=== PATIENT | male | born 1940 | race Caucasian/White ===

== ENCOUNTER → 2020-05-12 | Outpatient (CLI) | payer OTHER, MEDICARE ==
[~2020-05-12] MED LIST: ARGININE1 GM PO; ASPIR 8181 MG PO; ASPIRIN EC325 MG PO; BYSTOLIC10 MG PO; CHROMIUM400 MCG PO; CO Q-10100 MG PO; EMERGEN-C 500500 MG PO; FISH OIL 1,001000 M3 PO; GARLIC OIL1000 MG PO; LATANOPROST 0.2.5 ML EA. EYE; LIPITOR 20 MG T20 M1 PO; LOSARTAN-HCTZ1 EAC3 PO; MAGNESIUM250 M1 PO; MELOXICAM15 MG PO; METFORMIN HCL500 M3 PO; MUPIROCIN22 GM NARES; MURO-128 5% OPH15 M1 OPHTHALMIC; MURO-12815 ML/BOT EA. EYE; OCUFLOX5 ML RT. EYE; OSTERA TABLET1 EAC1 PO; PRED FORTE 1% EY5 M1 OPHTHALMIC; SUPER THERAVIT1 EACH PO; TIMOLOL MALEATE5 M2 OPHTHALMIC; TURMERIC500 M2 PO; VICTOZA0.6 MG/0.1 SUBQ; ZETIA10 MG PO; [UNRECOGNIZED DRUG - OTHER] PO
== END ==
LOC: SJCVCIMAG 05-05 09:42
PROVIDERS: ATTEND Internal Medicine Cardiovascular Disease
DX: I65.23 Occlusion and stenosis of bilateral carotid arteries (principal); R94.31 Abnormal electrocardiogram [ECG] [EKG]; I45.10 Unspecified right bundle-branch block; E78.00 Pure hypercholesterolemia, unspecified; I10 Essential (primary) hypertension; E11.9 Type 2 diabetes mellitus without complications; F17.210 Nicotine dependence, cigarettes, uncomplicated; Z79.899 Other long term (current) drug therapy

== ENCOUNTER 2020-05-17 06:31 | Inpatient (IN) | payer OTHER, MEDICARE ==
[2020-05-17] VITALS (12 sets, daily range): BP systolic 121–156; BP diastolic 53–115
[~2020-05-17] VITALS: Ht 185.4 cm; Wt 67.6 kg
[2020-05-17 07:36] LABS: HEMATOCRIT 41.2 % (42.0-52.0); HEMOGLOBIN 13.7 gm/dL (14.0-18.0); MCH 32.8 pg (26.0-34.0); MCHC 33.3 g/dL (28.0-37.0); MCV 98.4 fL (80.0-100.0); RBC 4.19 mil/uL (4.50-6.00); RDW 12.2 % (10.5-14.5); WBC 8.8 thou/uL (4.0-11.0)
[2020-05-17 07:46] LABS: CALCIUM 9.4 mg/dL (8.5-10.1); CREATININE 1.1 mg/dL (0.7-1.3); POTASSIUM 4.6 mmol/L (3.5-5.1)
[2020-05-17] MEDS ORDERED: VICTOZA0.6 MG/0.1 SUBQ (08:27)
[2020-05-17] MEDS ORDERED: METFORMIN HCL500 M3 PO (08:28)
[2020-05-17] MEDS ORDERED: TIMOLOL MALEATE5 M2 OPHTHALMIC (08:29)
[2020-05-17] MEDS ORDERED: BYSTOLIC10 MG PO (08:30)
[2020-05-17] MEDS ORDERED: LIPITOR 20 MG T20 M1 PO (08:35)
[2020-05-17] MEDS ORDERED: MELOXICAM15 MG PO (08:37)
[2020-05-17] MEDS ORDERED: LOSARTAN-HCTZ1 EAC3 PO (08:38)
[2020-05-17] MEDS ORDERED: LATANOPROST 0.2.5 ML EA. EYE (08:44)
[2020-05-17] MEDS ORDERED: ASPIRIN EC325 MG PO (08:46)
[2020-05-17] MEDS ORDERED: MUPIROCIN22 GM NARES (08:48)
[2020-05-17] MEDS ORDERED: FISH OIL 1,001000 M3 PO (08:52)
[2020-05-17] MEDS ORDERED: CHROMIUM400 MCG PO (08:53)
[2020-05-17] MEDS ORDERED: CO Q-10100 MG PO (09:17)
[2020-05-17] MEDS ORDERED: SUPER THERAVIT1 EACH PO (09:17)
[2020-05-17] MEDS ORDERED: EMERGEN-C 500500 MG PO (09:20)
[2020-05-17] MEDS ORDERED: ARGININE1 GM PO (09:23)
[2020-05-17] MEDS ORDERED: OSTERA TABLET1 EAC1 PO (09:25)
[2020-05-17] MEDS ORDERED: TURMERIC500 M2 PO (09:29)
[2020-05-17] MEDS ORDERED: GARLIC OIL1000 MG PO (09:31)
[2020-05-17] MEDS ORDERED: [UNRECOGNIZED DRUG - OTHER] PO (09:32)
[2020-05-17] MEDS ORDERED: MAGNESIUM250 M1 PO (09:33)
[2020-05-17] MEDS ORDERED: MURO-12815 ML/BOT EA. EYE (09:35)
[2020-05-17] MEDS ORDERED: ZETIA10 MG PO (09:36)
[2020-05-17] MEDS ORDERED: PRED FORTE 1% EY5 M1 OPHTHALMIC (09:38)
[2020-05-17] MEDS ORDERED: OCUFLOX5 ML RT. EYE (09:40)
[2020-05-17] MEDS ORDERED: MURO-128 5% OPH15 M1 OPHTHALMIC (09:44)
--- NOTE | 2020-05-17 17:35 | NUR ---
PATIENT ARRIVED FROM CATHLAB, ALERT AND ORIENTED X4. RT GRION SITE D/C/I AND POST CARDIAC CATH ASSESSMENT IS STABLE. ADMISION COMPLETED AND POC INITIATED. AND WILL CONTINUE TO MONITOR.
[2020-05-18] VITALS (8 sets, daily range): BP systolic 94–126; BP diastolic 39–82
--- NOTE | 2020-05-18 05:42 | NUR ---
ASSUMED CARE OF PATIENT AT 1900. PATIENT ASKING ABOUT LATANAPROST DROPS. THEY ARE LISTED IN MED REC BUT NO ORDER FOR THEM . WILL PASS ON IN REPORT TO ASK ABOUT AN ORDER FOR THESE DROPS. PATIENT AMBULATED UNIT BEFORE HS. RIGHT GROIN INCISION SITE REMAINS SOFT WITH DRESSING C/D/I. PATIENT APPEARED TO REST WELL THROUGH NOC.
[2020-05-18 06:00] LABS: CALCIUM 8.6 mg/dL (8.5-10.1); CREATININE 1.2 mg/dL (0.7-1.3); POTASSIUM 4.2 mmol/L (3.5-5.1)
[2020-05-18 06:06] LABS: HEMATOCRIT 34.4 % (42.0-52.0); MCH 33.3 pg (26.0-34.0); MCHC 33.8 g/dL (28.0-37.0); MCV 98.4 fL (80.0-100.0); RBC 3.5 mil/uL (4.50-6.00); RDW 12.2 % (10.5-14.5); WBC 7.5 thou/uL (4.0-11.0)
[2020-05-18 06:30] LABS: HEMOGLOBIN 11.6 gm/dL (14.0-18.0)
--- NOTE | 2020-05-18 09:32 | NUR ---
CONSULT [id number] WAS COMPLETED TODAY BY THIS MOLDING AND TRIM INSTALLER. PATIENT AND FAMILY MEMBER WERE VISITED IN HIS ROOM YESTERDAY, may 17, 2020. PATIENT WAS VISITED PRIOR TO 0730 HOURS A ROUTINE, PRE-SURGERY VISIT TODAY. THEY WERE APPRECIAITVE FOR THE VISITS.
--- NOTE | 2020-05-18 13:00 | NUR ---
PT RECIEVED TO THE ICU AAOX4, SPEAK CLEAR AND TELLING JOKES. ORIENTED TO ROOM AND SURROUNDINGS. PLACED ON THE MONITOR SHOWS NSR, CARDENE IS OFF AT THIS TIME. SBP IS 95-97, RT WRIST TREVER. DENIES ANY PAIN AT THIS TIME BUT WANTS A DIET COKE. WILL CONT, TO MONITOR.
--- NOTE | 2020-05-18 17:51 | CATHLAB ---
[facility] [email or web address] [address] INVASIVE PROCEDURE REPORT Name: CHING FARRIS Room #: 248-P ADM IN M.R.#: [id number] Admission: 05/17/20 Attend Phys: Сергей Vasquez MD Discharge: Date of : 44 Report #: [id number] THIS REPORT FOR: cc: Freddie Day Alan Z. DO Mancuso, Gerald M. MD [facility] ~ APPROVED REPORT Study performed: 05/17/2020 09:32:38 Patient Details Patient Status: Out-Patient Room #: The patient is a 80 year-old male Event Personnel Сергей Vasquez Interventional Radiologist, Saji Sutherland Pilot Boat Operator, Carlos Guerrero RTR Sonia Carvalho Wes RN, Laura Muniz RTR Monitor Procedures Performed Art Access - R femoral artery* Left Heart Cath w/or w/o Coronaries [id number] [facility] Hemostasis w/ Mynx 94858 Initial Mod Sed Same Phys/QHP Gr5y 207243 12767 Mod Sed Same Phys/QHP Ea 391935 Procedure Narrative The was infiltrated with 1% Lidocaine subcutaneous anesthesia. A SHEATH BRITE-TIP 6F X 11CM ([id number]) sheath was inserted into the RFA^. Coronary angiography was performed using coronary diagnostic catheters. The right coronary system was accessed and visualized with a JR4 catheter. The left coronary system was accessed and visualized with a JL4 catheter. The left ventricle was accessed and visualized with a PIGTAIL catheter. Left ventricular/Aortic Valve gradient assessed via catheter pullback. Left ventriculogram was performed in 30 degree projection. Pre-demployment femoral angiogram was performed . Closure device was deployed with a Fr MYNXGRIP 6/7F #[id number]. The patient tolerated the procedure well and there were no complications associated with the procedure. There was no hematoma. Intraoperative Conscious Sedation Sedation start time: 8:31 Case end Time: 10:38 Fentanyl 100 mcg Versed 2 mg Sedation time/amount is a combined total from the Runoff procedure and from the Left Heart Cath procedure. [address] [place] [address] INVASIVE PROCEDURE REPORT Name: CHING FARRIS Room #: 248-P [facility].#: [id number] Admission: 05/17/20 Attend Phys: Сергей Vasquez, Discharge: Date of : 42 Report #: [id number] Fluoro Time: 7.13 minutes Dose: DAP 9250.80 cGycm2 598 mGy Contrast Type and Amount: Omnipaque 226 ml Hemodynamics The aortic pressure is 126/58 mmHg with a mean of 86 mmHg. The left ventricular pressure is 134/8 mmHg with a mean of mmHg. The left ventricular end diastolic pressure is 20 mmHg. Conclusion #1. Normal left ventricular size and systolic function EF 55% #2 LAD is mild diffusely diseased relatively small caliber but extends around the apex no occlusive disease. Diagonal system also patent. #3 circumflex OM nondominant with mild irregularities. #4 dominant right coronary artery is moderate size caliber no occlusive disease is noted anatomically dominant. Recommendations and plan: Continue aggressive risk factor modification no indication for coronary intervention. Okay to proceed with carotid endarterectomy. <ELECTRONICALLY SIGNED> By: Saji Sutherland MD, FACC 05/18/201750 50 50 Saji Sutherland MD, FACC /INF
--- NOTE | 2020-05-18 18:35 | NUR ---
ASSESSED PT WITH DR. NICHOLSON AND DR. KHAN. INFORMED HERBIE DIETZ ABLE TO WEANN PT OFF CARDENE GTT AND THEY AGREED. PT TAKING IN GO PO, INCISION SITE CDI WITH PROVINA DRESSING IN PLACE. START GLUCOSE CHECKS AND SLIFING SCALE INSULIN. PT PROGRESSING TOWARDS GOALS.
--- NOTE | 2020-05-18 19:06 | NUR ---
REPORT GIVEN TO NIGHT RN.
[2020-05-19] VITALS (10 sets, daily range): BP systolic 89–139; BP diastolic 40–58
--- NOTE | 2020-05-19 05:01 | NUR ---
Assumed care of pt at 2300, he is alert and oriented, he denies discomfort and repositions himself in bed. PLease note, when pt tilts to his right side, the rt radial art line is VERY positional and the waveform dampens, causing abnormally low BP's, which rebound very quickly when his wrist is straightened. The cardene drip has been titrated through the shift, with good effect, and the VANE cuff pressures are usually up to 30 mmHg less than the art line. Monitor reads SR, 60's to 80's, + pulses and no edema. He is on room air, sats have been 94% and above with nonlabored respirations from 14-16 bpm. He has a dry cough and clears his throat frequently. The MARY ANN dressing to the left side of his neck shows some dried drainage, but no further bleeding is noted. Otherwise his assessment is benign, Ferreira catheter is patent, draining clear yellow urine to DD. The bed is in the low/locked position, the siderails are up x 3, and the call light is within reach, pt is progressing towards his POC goals and should be able to discharge to home. Will continue to monitor.
[2020-05-19 06:21] LABS: HEMATOCRIT 30.5 % (42.0-52.0); HEMOGLOBIN 10.3 gm/dL (14.0-18.0); MCH 33.3 pg (26.0-34.0); MCHC 33.8 g/dL (28.0-37.0); MCV 98.4 fL (80.0-100.0); RBC 3.1 mil/uL (4.50-6.00); RDW 12.1 % (10.5-14.5); WBC 13.3 thou/uL (4.0-11.0)
[2020-05-19 06:37] LABS: CALCIUM 8.1 mg/dL (8.5-10.1); CREATININE 1.1 mg/dL (0.7-1.3); POTASSIUM 4.3 mmol/L (3.5-5.1)
[2020-05-19] MEDS ORDERED: ASPIR 8181 MG PO (07:34)
--- NOTE | 2020-05-19 13:55 | NUR ---
PATIENT AMBULATED IN THE HALLS STEADY GAIT. NO DYSPNEA WITH ACTIVITY NOTED.
--- NOTE | 2020-05-19 15:00 | NUR ---
PATIENT DISCHARGED TO HOME WITH HIS VIA W/C. DISCHARGE INSTRUCTIONS REVIEWED WITH PATIENT AND , VERBALIZED UNDERSTANDING. ALSO GIVEN COVID 19 INFORMATION SHEET.
--- NOTE | 2020-05-19 18:06 | PATH ---
[facility] [address] [place] [address] PATHOLOGY RPT PROCEDURE Name: CHING FARRIS Room #: 248-P [facility] IN M.R.#: [id number] Admission: 05/17/20 Date of : 44 Discharge: 05/19/20 Report #: [id number] Path Case #: [id number] [facility] Accession Number: [id number] . 01 Material submitted: . carotid body - LEFT CAROTID ARTERY PLAQUE. Modifiers: left . 01 Clinical history: . Occlusion and stenosis of left carotid artery . 02 Diagnosis: Left carotid artery plaque, endarterectomy: - Fragments of calcified atherosclerotic plaque material. (IUV:pit 05/19/2020) QTP 05/19/2020 1338 Local . 02 Electronically signed: . Raven Acosta MD, Pathologist NPI- [id number] . 01 Gross description: . The specimen is received in formalin, labeled "Ching Farris Jr., left carotid artery plaque". Received is a segment of partially calcified yellow-torres plaque measuring 3.5 cm in length and ranges in diameter from 0.9 to 1.4 cm. The specimen is submitted representatively in cassette A1, following light decalcification. (CAA; 05/18/2020) QAC/QAC 05/18/2020 1850 Local . 02 Pathologist provided ICD-10: I65.22, I77.1 . 02 CPT . 786974 Specimen Comment: A courtesy copy of this report has been sent to [phone], [phone] Specimen Comment: [phone], Specimen Comment: Report sent to ,DR SOSA / DR GUIDRY Performed at: [address], [place] [id number] MD Skyler Olson MD Phone: [phone] Performed at: [address] [id number] MD Raven Acosta MD Phone: [phone]
--- NOTE | 2020-05-20 07:54 | HC ---
[facility] [place] [address] CONSULTATION Name: CHING FARRIS JR Room #: 248-P [facility] IN .R.#: [id number] Admission: 05/17/20 Attend Phys: Сергей Vasquez MD Discharge: 05/19/20 Date of : 42 Report #: [id number] THIS REPORT FOR: cc: Freddie Day Alan Z. DO Forman, John M. MD ~ CC: Freddie Vasquez We were asked to see the patient by Dr. Sutherland and Dr. Vasquez. HISTORY OF PRESENT ILLNESS: The patient is a 80-year-old with carotid artery disease. The patient has a 90% asymptomatic left carotid lesion that was found in the office. This has been followed for at least 6 months by noninvasive study and has progressed from 70% to 90%. Today, arteriography demonstrates a 90% left internal carotid stenosis and the right side has a 60% lesion. As mentioned, the patient denies symptoms of transient ischemic attack, stroke, amaurosis fugax, vertebrobasilar insufficiency. MEDICATIONS: Include Victoza, losartan, Bystolic, rosuvastatin, timolol eyedrops, aspirin, and Zetia. PAST MEDICAL HISTORY: Significant for hypertension, hypercholesterolemia, diabetes mellitus type 2 and glaucoma. SOCIAL HISTORY: The patient is a current smoker and longtime smoker. Social alcohol. The patient lives in [place] but splits time with [place], [place]. REVIEW OF SYSTEMS: GENERAL: Denies fever, fatigability. EYES: Problems related to glaucoma, requiring surgery, currently on eyedrops. HENT: Denies headache, hearing problems, sinus problems. CARDIAC: Denies angina. Denies palpitations. PULMONARY: Denies cough, shortness of breath. GASTROINTESTINAL: Denies nausea, vomiting, pain or blood. GENITOURINARY: Denies urgency, frequency, blood. MUSCULOSKELETAL: Complains of right hip discomfort from arthritis. NEUROLOGIC: Denies motor or sensory dysfunction. HEMATOLOGIC: Denies bleeding or bruisability. ENDOCRINE: Denies goiter or tremors. PHYSICAL EXAMINATION: GENERAL: The patient is a pleasant fellow, awake and alert after his cardiac [facility] [address] [place] [address] CONSULTATION Name: KALEIGHCHING René Room #: 248-P [facility] IN [facility]#: [id number] Admission: 05/17/20 Attend Phys: Сергей Vasquez MD Discharge: 05/19/20 Date of : 44 Report #: [id number] and carotid catheterization. VITAL SIGNS: Heart rate 70, sinus. Blood pressure 150/80. HEENT: No scleral icterus. Mild inflammation and discharge, right eye. NECK: No mass. 2+ left cervical bruit, questionable right cervical bruit. CHEST: Clear to auscultation. HEART: Rhythm regular, somewhat distant. No murmurs. ABDOMEN: Soft. EXTREMITIES: No clubbing, cyanosis or edema, 2+ popliteal pulses bilaterally. NEUROLOGIC: No motor or sensory dysfunction. MUSCULOSKELETAL: No bone or joint asymmetry or deformity. I reviewed the carotid studies with the patient and his . I have recommended left carotid endarterectomy. Risks and details of this were discussed. Options and alternatives were reviewed. The patient understands all of this and he wishes to proceed. We have made arrangements for surgery for tomorrow morning. The patient will continue aspirin after surgery. Thank you for the consult. <ELECTRONICALLY SIGNED> By: Efrain Dorado MD 05/20/20 0754 1226 1246 Efrain Dorado MD /nt
--- NOTE | 2020-05-20 07:54 | O ---
[facility] [place] [address] OPERATIVE REPORT Name: CHING FARRIS JR Room #: 248-P [facility] IN M.R.#: [id number] Admission: 05/17/20 Attend Phys: Сергей Vasquez MD Discharge: 05/19/20 Date of : 44 Report #: [id number] THIS REPORT FOR: cc: Freddie Day Alan Z. DO Forman, John M. MD ~ CC: Freddie Vasquez DATE OF SERVICE: 05/18/2020 PREOPERATIVE DIAGNOSIS: Left carotid artery stenosis. POSTOPERATIVE DIAGNOSIS: Left carotid artery stenosis. OPERATION: Left carotid endarterectomy with patch closure. SURGEON: Efrain Dorado MD EMBLEM FUSER TENDER: RODO Larose. ANESTHESIA: General. INDICATIONS: The patient is a 80-year-old seen for Dr. Sutherland. The patient has a 99% left internal carotid stenosis. This is asymptomatic. It has been seen to grow over the past 6 months or so. Right side is a moderate lesion in the 40-60% range. FINDINGS AND TECHNIQUE: After general anesthesia was established, an oblique left neck incision was made. Common facial vein was divided. Common internal and external carotid arteries were identified and controlled as was the superior thyroid artery. Heparin was given. Continuous electroencephalographic monitoring was performed during the operation. When the carotid vessels were occluded, no EEG changes were noted. The carotid arteriotomy was made. The endarterectomy was performed without creating a distal flap. Neointima was inspected and all loose debris was removed. Tacking sutures were placed at the transition zone. When the endarterectomy was deemed to be satisfactory, the arteriotomy was closed with running Prolene and a thin walled pericardial patch. Prior to finishing the closure, the carotid vessels were backbled and the artery was flushed with heparinized saline. Flow was established first through the external, then the internal carotid artery. [facility] [address] [place] [address] OPERATIVE REPORT Name: CHING FARRIS JR Room #: 248-P [facility].#: [id number] Admission: 05/17/20 Attend Phys: Сергей Vasquez MD Discharge: 05/19/20 Date of : 42 Report #: [id number] Protamine was given to reverse the heparin. Hemostasis was ascertained. The Elgin drain was brought out through the bottom pole of the incision and the wound was closed in layers. The patient was taken to the recovery area in satisfactory condition, his neurologic progress was monitored. All counts reported as correct. <ELECTRONICALLY SIGNED> By: Efrain Dorado MD 05/20/20 0754 1009 1051 Efrain Dorado MD /nt
--- NOTE | 2020-05-20 18:44 | H ---
[facility] [place] [address] HISTORY AND PHYSICAL Name: CHING FARRIS JR Room #: 248-P [facility] IN M.R.#: [id number] Admission: 05/17/20 Attend Phys: Сергей Vasquez MD Discharge: 05/19/20 Date of : 44 Report #: [id number] THIS REPORT FOR: cc: Freddie Day Alan Z. DO Mancuso, Gerald M. MD [facility] ~ CC: Freddie Gallagher DATE OF SERVICE: 05/17/2020 HISTORY OF PRESENT ILLNESS: A 80-year-old male who will be admitted today for a left carotid endarterectomy. He was brought in for workup including angiogram and cardiac catheterization for an equivocal stress test. The left internal carotid artery is greater than 90% stenosis per angiogram by Dr. Vasquez here today. He has mild 3-vessel coronary artery disease. He remains hemodynamically stable. He has not had any syncope or presyncope or any focal neurologic findings. There has been some lightheadedness. He denies any visual field deficits. There is a history of glaucoma that he scheduled for surgery on 05/30/2019. Some equivocal chest pain, but now after cardiac catheterization today reveals only mild 3-vessel disease. MEDICATIONS: His home medications have been Victoza, losartan 100, Bystolic 2.5, rosuvastatin 20, timolol, aspirin and Zetia generically. PAST MEDICAL AND SURGICAL HISTORY: Positive for hypertension, hypercholesterolemia, high-grade carotid stenosis as noted above, which has progressed significantly, glaucoma, diabetes type 2, colon polyps, iron deficiency and rotator cuff repair. SOCIAL HISTORY: He is a current smoker. He is a pack a day smoker, social alcohol, 3 cups of coffee. He is retired. He is , 3 children. FAMILY HISTORY: Father did have coronary artery disease. REVIEW OF SYSTEMS: Essentially negative except for stated above, some nocturia. PHYSICAL EXAMINATION: VITAL SIGNS: Blood pressure 130/54, pulse 70s. HEENT: Eyes reveal xanthelasmas. Pharynx is clear. NECK: Shows preserved upstrokes. There is a slight diminished on the left side with a left-sided bruit. LUNGS: Pharynx is clear. Lungs showed clear anteriorly, slight prolonged stay phase. CARDIOVASCULAR: Regular rate and rhythm, S1, S2 distant. [facility] [address] [place] [address] HISTORY AND PHYSICAL Name: FARRISCHING Room #: 248-P [facility] IN [facility]#: [id number] Admission: 05/17/20 Attend Phys: Сергей Vasquez MD Discharge: 05/19/20 Date of : 44 Report #: [id number] ABDOMEN: Soft. No HSM or abdominal bruit. EXTREMITIES: Reveal diminished pulses, but intact. NEUROLOGIC: Nonfocal. SKIN: Warm and dry without xanthoma or ulcer. There are mild venous stasis changes in lower extremities at the ankles. NEUROLOGIC: Nonfocal. ASSESSMENT: 1. High-grade left internal carotid artery stenosis greater than 90% by angiogram. 2. Mild 3-vessel coronary artery disease by cardiac catheterization. 3. Hypertension. 4. Hypercholesterolemia. 5. Degenerative joint disease. 6. Diabetes. RECOMMENDATIONS AND PLAN: We will admit to telemetry unit. Dr. Dorado, CT surgery for carotid endarterectomy and consulted. I expect surgery in a.m. Thank you for asking me to assist in the care of this patient. <ELECTRONICALLY SIGNED> By: Saji Sutherland MD, FACC 05/20/20 1844 1024 1046 Saji Sutherland MD, FACC /nt
== END 2020-05-19 15:00 | disposition home or self-care (01) | DRG 253 ==
LOC: CATH 06:31 → ICU 11:23 → 2N 11:23 → ICU 05-18 11:33
PROVIDERS: Nurse Practitioner Adult Health; Physician Assistant; ADMIT Nuclear Medicine Nuclear Cardiology; ATTEND Nuclear Medicine Nuclear Cardiology
PROC: B41F1ZZ Fluoroscopy of Right Lower Extremity Arteries using Low Osmolar Contrast (ICD-10-PCS; principal; 2020-05-17)
PROC: B2111ZZ Fluoroscopy of Multiple Coronary Arteries using Low Osmolar Contrast (ICD-10-PCS; principal; 2020-05-17)
PROC: B2151ZZ Fluoroscopy of Left Heart using Low Osmolar Contrast (ICD-10-PCS; principal; 2020-05-17)
PROC: 4A023N7 Measurement of Cardiac Sampling and Pressure, Left Heart, Percutaneous Approach (ICD-10-PCS; principal; 2020-05-17)
PROC: 03UL0KZ Supplement Left Internal Carotid Artery with Nonautologous Tissue Substitute, Open Approach (ICD-10-PCS; 2020-05-18)
PROC: 03CL0ZZ Extirpation of Matter from Left Internal Carotid Artery, Open Approach (ICD-10-PCS; 2020-05-18)
DX: I25.10 Atherosclerotic heart disease of native coronary artery without angina pectoris (principal); D62 Acute posthemorrhagic anemia; I65.22 Occlusion and stenosis of left carotid artery; I10 Essential (primary) hypertension; E78.00 Pure hypercholesterolemia, unspecified; E11.9 Type 2 diabetes mellitus without complications; F17.210 Nicotine dependence, cigarettes, uncomplicated; M19.90 Unspecified osteoarthritis, unspecified site; E78.5 Hyperlipidemia, unspecified; Z83.3 Family history of diabetes mellitus; Z86.010 Personal history of colon polyps; Z82.49 Family history of ischemic heart disease and other diseases of the circulatory system; Z79.899 Other long term (current) drug therapy
CPT/HCPCS: 10078; 10081; 47375; 48888; 50010; 50101; 50386; 50417; 51301; 52279; 52287; 54118; 56524; 56526; 56528; 56531; 56534; 57254; 62110; 62900; 65020; 65040; 70005

== ENCOUNTER → 2020-06-21 | Outpatient (CLI) | payer OTHER, MEDICARE | LOC: SJCVCIMAG 07:20 | PROVIDERS: ATTEND Internal Medicine Cardiovascular Disease | DX: I65.23 Occlusion and stenosis of bilateral carotid arteries (principal); I45.10 Unspecified right bundle-branch block; I10 Essential (primary) hypertension; E78.00 Pure hypercholesterolemia, unspecified; E08.00 Diabetes mellitus due to underlying condition with hyperosmolarity without nonketotic hyperglycemic-hyperosmolar coma (NKHHC); I25.10 Atherosclerotic heart disease of native coronary artery without angina pectoris; I73.9 Peripheral vascular disease, unspecified; E78.5 Hyperlipidemia, unspecified; F17.210 Nicotine dependence, cigarettes, uncomplicated; Z79.82 Long term (current) use of aspirin; Z82.49 Family history of ischemic heart disease and other diseases of the circulatory system; Z79.899 Other long term (current) drug therapy ==

== ENCOUNTER → 2021-02-21 | Outpatient (CLI) | payer OTHER, MEDICARE | LOC: SJCVCIMAG 07:27 | PROVIDERS: ATTEND Internal Medicine Cardiovascular Disease | DX: R94.31 Abnormal electrocardiogram [ECG] [EKG] (principal); I70.201 Unspecified atherosclerosis of native arteries of extremities, right leg; I65.23 Occlusion and stenosis of bilateral carotid arteries; E78.00 Pure hypercholesterolemia, unspecified; E08.00 Diabetes mellitus due to underlying condition with hyperosmolarity without nonketotic hyperglycemic-hyperosmolar coma (NKHHC); E11.39 Type 2 diabetes mellitus with other diabetic ophthalmic complication; H40.9 Unspecified glaucoma; H42 Glaucoma in diseases classified elsewhere; E78.5 Hyperlipidemia, unspecified; E11.51 Type 2 diabetes mellitus with diabetic peripheral angiopathy without gangrene; I10 Essential (primary) hypertension; Z86.010 Personal history of colon polyps; Z87.891 Personal history of nicotine dependence; Z72.89 Other problems related to lifestyle; Z79.82 Long term (current) use of aspirin; Z79.899 Other long term (current) drug therapy ==

== ENCOUNTER → 2021-08-29 | Outpatient (CLI) | payer OTHER, MEDICARE | LOC: SJCVCIMAG 07:21 | PROVIDERS: ATTEND Internal Medicine Cardiovascular Disease | DX: I65.21 Occlusion and stenosis of right carotid artery (principal); I44.4 Left anterior fascicular block; I48.91 Unspecified atrial fibrillation; R94.31 Abnormal electrocardiogram [ECG] [EKG]; I77.9 Disorder of arteries and arterioles, unspecified; I11.9 Hypertensive heart disease without heart failure; I25.10 Atherosclerotic heart disease of native coronary artery without angina pectoris; I73.9 Peripheral vascular disease, unspecified; E78.00 Pure hypercholesterolemia, unspecified; E11.9 Type 2 diabetes mellitus without complications; F17.200 Nicotine dependence, unspecified, uncomplicated; E78.5 Hyperlipidemia, unspecified; Z98.61 Coronary angioplasty status; Z98.890 Other specified postprocedural states; Z72.89 Other problems related to lifestyle; Z79.84 Long term (current) use of oral hypoglycemic drugs; Z79.82 Long term (current) use of aspirin; Z79.899 Other long term (current) drug therapy ==